=== PATIENT | female | born 1955 | race Caucasian/White ===

== ENCOUNTER 2018-09-04 16:23 | Outpatient (CLI) | payer OTHER ==
[2018-09-06 09:25] LABS: ESTRADIOL 765.9 pg/mL (.); FSH, SERUM 0.3 mIU/mL (.)
== END 2018-09-04 23:59 | disposition home or self-care (01) ==
LOC: LAB 16:23
PROVIDERS: ATTEND Internal Medicine
DX: E03.9 Hypothyroidism, unspecified (principal); F17.200 Nicotine dependence, unspecified, uncomplicated; F64.8 Other gender identity disorders
CPT/HCPCS: 36415; 82670; 83001; 84402; 84403; 84443

== ENCOUNTER 2019-03-04 11:39 | Outpatient (CLI) | payer OTHER ==
[2019-03-06 08:12] LABS: ESTRADIOL 669.8 pg/mL (.); FSH, SERUM <0.2 mIU/mL (.)
== END 2019-03-04 23:59 | disposition home or self-care (01) ==
LOC: LAB 11:39
PROVIDERS: ATTEND Internal Medicine
DX: E03.9 Hypothyroidism, unspecified (principal); F17.200 Nicotine dependence, unspecified, uncomplicated
CPT/HCPCS: 36415; 82670; 83001; 84402; 84403; 84443

== ENCOUNTER 2019-08-26 15:54 | Outpatient (CLI) | payer OTHER ==
[2019-08-28 08:09] LABS: ESTRADIOL 277.1 pg/mL (.); FSH, SERUM 0.3 mIU/mL (.)
== END 2019-08-26 23:59 | disposition home or self-care (01) ==
LOC: LAB 15:54
PROVIDERS: ATTEND Internal Medicine
DX: F64.9 Gender identity disorder, unspecified (principal); E03.9 Hypothyroidism, unspecified
CPT/HCPCS: 36415; 82670; 83001; 84402; 84403; 84443

== ENCOUNTER 2020-03-10 15:29 | Outpatient (CLI) | payer OTHER ==
[2020-03-12 11:10] LABS: FSH, SERUM <0.3 mIU/mL (.)
== END 2020-03-10 23:59 | disposition home or self-care (01) ==
LOC: LAB 15:29
PROVIDERS: ATTEND Internal Medicine
DX: E03.9 Hypothyroidism, unspecified (principal)
CPT/HCPCS: 36415; 82670; 83001; 84443

== ENCOUNTER 2020-10-13 14:05 | Outpatient (CLI) | payer BC ==
[2020-10-13 16:37] LABS: ALBUMIN 3.3 G/DL (3.4-5.0)
[2020-10-16 08:40] LABS: FSH, SERUM <0.3 mIU/mL (.)
[2020-10-17 19:19] LABS: TESTOSTERONE, FREE, DIRECT 1.7 pg/mL (0.0-4.2)
== END 2020-10-13 23:59 | disposition home or self-care (01) ==
LOC: EEVIPCON 14:05 → LAB 14:05
PROVIDERS: ATTEND Internal Medicine
DX: F64.9 Gender identity disorder, unspecified (principal)
CPT/HCPCS: 36415; 82040; 82670; 83001; 84270; 84402; 84403; 84443

== ENCOUNTER 2021-04-05 15:40 | Outpatient (CLI) | payer BC ==
[2021-04-05 16:15] LABS: BASOPHILS # (AUTO) 0.1 X10'3 (0-0.2); BASOPHILS % (AUTO) 1.2 % (0-1); EOSINOPHILS # (AUTO) 0.6 X10'3 (0-0.9); EOSINOPHILS % (AUTO) 5.1 % (0-6); HEMATOCRIT 41.3 % (35.0-45.0); HEMOGLOBIN 14.1 g/dl (12.0-16.0); LYMPHOCYTES # (AUTO) 2.5 X10'3 (1.1-4.8); LYMPHOCYTES % (AUTO) 21.6 % (21-51); MEAN CORPUSCULAR HEMOGLOBIN 31.7 PG (27.0-31.0); MEAN CORPUSCULAR VOLUME 93.2 FL (78-98); MEAN PLATELET VOLUME 7.8 FL (7.4-10.4); MONOCYTES # (AUTO) 0.9 X10'3 (0-0.9); MONOCYTES % (AUTO) 7.6 % (2-12); NEUTROPHILS # (AUTO) 7.4 X10'3 (1.8-7.7); NEUTROPHILS % (AUTO) 64.5 % (42-75); PLATELET COUNT 248 X10'3 (140-440); RED BLOOD COUNT 4.44 X10'6 (4.20-5.60); RED CELL DISTRIBUTION WIDTH 13.3 % (11.5-14.5); WHITE BLOOD COUNT 11.5 X10'3 (4.5-11.0)
[2021-04-07 09:43] LABS: FSH, SERUM <0.3 mIU/mL (.)
== END 2021-04-05 23:59 | disposition home or self-care (01) ==
LOC: LAB 15:40
DX: E64.9 Sequelae of unspecified nutritional deficiency (principal)
CPT/HCPCS: 36415; 82670; 83001; 84270; 84410; 84443; 85025